=== PATIENT | male | born 1975 | race Caucasian/White ===

== ENCOUNTER 2024-03-15 14:50 | Emergency (ER) | payer OTHER ==
[2024-03-15] MEDS: Diphtheria,Pertussis(Acell),Tetanus Vaccine 0.5 ML Syringe IM ONE (16:31)
[2024-03-15] MEDS: Bacitracin Oint 1 GM U/D Packet TOP ONE (16:38)
== END 2024-03-15 16:45 | disposition home or self-care (01) ==
LOC: JP.ED 14:50
DX: T20.19XA Burn of first degree of multiple sites of head, face, and neck, initial encounter (principal); Z23 Encounter for immunization; X58.XXXA Exposure to other specified factors, initial encounter
CPT/HCPCS: 90471; 90715; 99283; 99283-25